=== PATIENT | male | born 1965 ===

== ENCOUNTER 2018-01-29 13:21 | Emergency (ER) | payer OTHER ==
[2018-01-29 13:33] VITALS: BP 123/78
[2018-01-29] MEDS ORDERED: IBUPROFEN 600 MG TAB PO ONE (13:52)
[2018-01-29] MEDS ORDERED: LIDOCAINE 4%/MENTHOL 1% PATCH TD ONE (13:53)
--- NOTE | 2018-01-29 13:53 | EDPHY ---
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 Patient has had pain in his right back and some going down his right leg. Occasionally has spasms. No new numbness or weakness. No difficulty urinating. No prior back injuries. He has been taking acetaminophen and applying ice for the pain. No anti-inflammatories. No fevers or chills. He tried to go see work[employer]'s Comp this morning but they were closed. ROS: 10 point Review of Systems is negative except as noted in the HPI. PMH: Bipolar disorder, pituitary deficiency Social History: No smoking, no alcohol, no recreational drug use Family History: non-contributory Physical Exam: Gen: Awake, Alert, No Distress HEENT: Nose: no rhinorrhea Eyes: PERRLA, EOMI Mouth: Moist mucosa Neck: Supple, no JVD Chest: nontender, lungs clear to auscultation Heart: S1, S2 normal, no murmur Abd: Soft, non-tender, no guarding Back: no CVA tenderness, no midline tenderness Ext: no edema, non-tender Skin: no rash Neuro: CN II-XII intact, Sensation grossly intact, Strength 5/5 in bilateral upper and lower extremities, 2+ deep tendon reflexes of patellar tendons, toes are downgoing - Personal History Current Tetanus Diphtheria and Acellular Pertussis (TDAP): Unsure - Medical/Surgical History Hx Asthma: No Hx Chronic Respiratory Disease: No Hx Diabetes: No Hx Cardiac Disease: No Hx Renal Disease: No Hx Cirrhosis: No Hx Alcoholism: No Hx HIV/AIDS: No Hx Splenectomy or Spleen Trauma: No Other PMH: fx cervical vertebrae 2008, orthopedic surgeries, bipolar disorder - Social History Smoking Status: Never smoked Constitutional: Initial Vital Signs Temperature (C) 36.6 C 01/29/18 13:28 Heart Rate 70 01/29/18 13:28 Respiratory Rate 16 01/29/18 13:28 Blood Pressure 123/78 H 01/29/18 13:28 O2 Sat (%) 93 01/29/18 13:28 O2 Delivery Mode Room Air Allergies/Adverse Reactions: No Known Allergies Allergy (Unverified 01/29/18 13:33) Home Medications: Medication Instructions Recorded Androgel 01/29/18 Aspirin 81mg (*) 01/29/18 Bromocriptine Mesylate 01/29/18 Carbamazepine 01/29/18 LaMICtal 01/29/18 SIMVASTATIN 01/29/18 Medical Decision Making ED Course/Re-evaluation: 52-year-old male with low back strain. No red flags for acute spinal process. Will put him on anti-inflammatories, back exercises. Follow up with work[employer]'s [employer] next week. Departure - Departure Disposition: Home, Routine, Self-Care Clinical Impression: Lumbar strain Condition: Good Instructions: Low Back Strain (ED), Lower Back Exercises (ED), Core Strengthening Exercises (ED) Additional Instructions: Take ibuprofen, 600 mg, 3 times a day. You may also take acetaminophen, 1000 mg every 6 hours. Replace the Lidoderm 4% patch every 24 hr, these are available [id number] Make sure to remain active. Did do not lay in bed or sit in a chair for long periods. It is important to remain active and keep your back moving in order to improve. Please see the attached back exercise instructions. Follow up with work[employer]'s Comp in 3-4 days for further evaluation. Referrals: Work Comp Referral [facility] [Outside] - As per Instructions
[2018-01-29] MEDS ORDERED: PATCH REMOVAL 1 EA PATCH TD SCH (21:00)
== END 2018-01-29 14:14 | disposition home or self-care (01) ==
LOC: CED 13:21
DX: S39.012A Strain of muscle, fascia and tendon of lower back, initial encounter (principal); Z79.82 Long term (current) use of aspirin; X50.9XXA Other and unspecified overexertion or strenuous movements or postures, initial encounter; Y92.69 Other specified industrial and construction area as the place of occurrence of the external cause; Y99.0 Civilian activity done for income or pay; Y93.89 Activity, other specified